=== PATIENT | female | born 1935 | race Caucasian/White ===

== ENCOUNTER 2019-06-02 07:04 | Day surgery (SDC) | payer MEDICARE ==
[2019-06-02] VITALS (10 sets, daily range): BP systolic 120–203; BP diastolic 57–79; PULSE 60–66; TEMP 98.5
[~2019-06-02] VITALS: Ht 149.9 cm; Wt 100.6 kg
[~2019-06-02 07:04] MED LIST: ASPI325T6 PO; CELEXA 20MG20 MG/TAB PO; GERITOL COMPLET1 TAB PO; IMDUR120 MG PO; OS-CAL 500+D 501 TAB PO; PLAVIX 75MG TAB75 MG PO; PRINZIDE 12.5 M1 TA1 PO; PROTONIX 40MG T40 MG PO; ZIAC 5/6.25MG T1 TAB PO; ZOCOR 20MG20 MG PO
[2019-06-02 08:18] LABS: HEMOGLOBIN 12.3 g/dl (12.5-16.0); MEAN CELL VOLUME 102 fl (80.0-100.0); MEAN CORPUSCULAR HEMOGLOBIN 34 pg (27.0-31.0); MEAN CORPUSCULAR HGB CONC 33 g/dl (33.0-37.0); MEAN PLATELET VOLUME 10.7 fl (7.4-10.4); PLATELET COUNT 196 K/mm3 (130-400); RED BLOOD COUNT 3.61 M/mm3 (4.10-5.30)
[2019-06-02 08:27] LABS: INR 0.9 (0.8-3.0); PROTHROMBIN TIME 10.8 SECONDS (9.7-12.8)
[2019-06-02 08:28] LABS: CALCIUM 9.7 mg/dL (8.4-10.2); CREATININE, serum 1.02 (0.52-1.25); POTASSIUM 4.4 mmol/L (3.4-5.0)
[2019-06-02] MEDS ORDERED: ZESTRIL 5MG5 MG PO (08:30)
[2019-06-02] MEDS ORDERED: GLUCOPHAGE1000 MG PO (08:32)
[2019-06-02 08:33] LABS: HEMATOCRIT 36.8 % (37.0-47.0)
[2019-06-02] MEDS ORDERED: ZEBETA 5MG5 MG PO (09:47)
[2019-06-02] MEDS ORDERED: ASPIRIN 81M81 MG/TA2 PO (09:48)
[2019-06-02] MEDS ORDERED: IMDUR 60MG60 MG/TAB PO (09:48)
== END 2019-06-02 13:00 | disposition home or self-care (01) ==
LOC: COL.CAR 07:04
PROVIDERS: Internal Medicine Cardiovascular Disease
DX: I25.110 Atherosclerotic heart disease of native coronary artery with unstable angina pectoris (principal); R94.39 Abnormal result of other cardiovascular function study; I35.0 Nonrheumatic aortic (valve) stenosis; I42.2 Other hypertrophic cardiomyopathy
CPT/HCPCS: C1769; J1644; J2250; J3010; Q9967

== ENCOUNTER 2020-02-03 08:47 | Day surgery (SDC) | payer MEDICARE, OTHER ==
[~2020-02-03] VITALS: Ht 149.9 cm; Wt 91.4 kg
[2020-02-03] VITALS (7 sets, daily range): BP systolic 117–180; BP diastolic 56–81; PULSE 60–61; TEMP 97.9–98.1
[~2020-02-03 08:47] MED LIST changes: +ASPIRIN 81M81 MG/TA2 PO; +GLUCOPHAGE1000 MG PO; +IMDUR 60MG60 MG/TAB PO; +ZEBETA 5MG5 MG PO; +ZESTRIL 5MG5 MG PO
[2020-02-03 10:18] LABS: HEMOGLOBIN 12.9 g/dl (12.5-16.0); MEAN CELL VOLUME 102 fl (80.0-100.0); MEAN CORPUSCULAR HEMOGLOBIN 34 pg (27.0-31.0); MEAN CORPUSCULAR HGB CONC 33 g/dl (33.0-37.0); MEAN PLATELET VOLUME 10.6 fl (7.4-10.4); PLATELET COUNT 228 K/mm3 (130-400); RED BLOOD COUNT 3.83 M/mm3 (4.10-5.30); REDCELL DISTRIBUTION WIDTH-CV 12.9 % (11.5-14.5)
[2020-02-03 10:32] LABS: INR 0.9 (0.8-3.0); PROTHROMBIN TIME 10.8 SECONDS (9.7-12.8)
[2020-02-03 10:33] LABS: CALCIUM 9.6 mg/dL (8.4-10.2); CREATININE, serum 1.17 (0.52-1.25); POTASSIUM 4.3 mmol/L (3.4-5.0)
--- NOTE | 2020-02-03 10:35 | NUR ---
SEE MERGE FOR MEDICATION ADMINISTRATION TIMES AND INTRA AND POST SEDATION ASSESSMENTS.
[2020-02-03] MEDS ORDERED: CEPHALEXIN500 M1 PO (11:29)
== END 2020-02-03 14:50 | disposition home or self-care (01) ==
LOC: COL.CAR 08:47
PROVIDERS: Internal Medicine Cardiovascular Disease
DX: Z45.010 Encounter for checking and testing of cardiac pacemaker pulse generator [battery] (principal)
CPT/HCPCS: C1785; J0690; J2250; J3010; J7030